=== PATIENT | male | born 1975 | race Caucasian/White ===

== ENCOUNTER 2022-06-08 16:35 | Inpatient (IN) | payer OTHER ==
[2022-06-08 18:00] VITALS: BMI 18.3
[2022-06-08] MEDS ORDERED: hydrOXYzine PAMOATE 25 MG CAPSULE (FP) PO PRN (20:19)
[2022-06-08] MEDS ORDERED: NICOTINE 10 MG CARTRIDGE (INHALER) IH PRN (20:19)
[2022-06-08] MEDS ORDERED: NICOTINE POLACRILEX 2 MG GUM BUC PRN (20:19)
[2022-06-08] MEDS ORDERED: MAGNESIUM HYDROX 2400MG/30ML ORAL SUSPENSION 30 ML CUP PO PRN (20:19)
[2022-06-08] MEDS ORDERED: LOPERAMIDE HCL 2 MG CAPSULE PO PRN (20:19)
[2022-06-08] MEDS ORDERED: ONDANSETRON *ODT* 4 MG TABLET SL PRN (20:19)
[2022-06-08] MEDS ORDERED: IBUPROFEN 400 MG TABLET (FP) PO PRN (20:19)
[2022-06-08] MEDS ORDERED: guaiFENesin 600 MG TABLET.ER (FP) PO PRN (20:19)
[2022-06-08] MEDS ORDERED: IBUPROFEN 600 MG TABLET (FP) PO PRN (20:19)
[2022-06-08] MEDS ORDERED: DICYCLOMINE HCL 10 MG CAPSULE PO PRN (20:19)
[2022-06-08] MEDS ORDERED: MAG HYDROX/AL HYDROX/SIMETH 30 ML UNIT-DOSE CUP PO PRN (20:19)
[2022-06-08] MEDS ORDERED: POLYETHYLENE GLYCOL (HEALTHYLAX) 3350 17 GM PACKET PO PRN (20:19)
[2022-06-08] MEDS ORDERED: NALOXONE HCL (KLOXXADO) 8 MG SPRAY NS PRN (20:19)
[2022-06-08] MEDS ORDERED: P-EPHED 60MG/TRIPROLIDI 2.5MG TABLET PO PRN (20:19)
[2022-06-08] MEDS ORDERED: BENZONATATE 200 MG CAPSULE PO PRN (20:19)
[2022-06-08] MEDS ORDERED: BISMUTH SUBSALICYLATE 524 MG/30 ML PO PRN (20:19)
[2022-06-08] MEDS ORDERED: NALOXONE HCL 0.4 MG/ML VIAL IM PRN (20:19)
[2022-06-08] MEDS ORDERED: BENZOCAINE/MENTHOL (CHLORASEPTIC ) LOZENGE MM PRN (20:19)
[2022-06-08] MEDS ORDERED: ACETAMINOPHEN 325 MG TABLET (FP) PO PRN (20:19)
[2022-06-08] MEDS ORDERED: MELATONIN 5 MG TABLETS PO SCH (22:00)
[2022-06-08] MEDS ORDERED: traZODone HCL 50 MG TABLET (FP) PO ONE (22:30)
[2022-06-08] MEDS: METHOCARBAMOL 500 MG TABLET PO PRN (22:49)
[2022-06-08] MEDS: THIAMINE HCL 100 MG TABLET (FP) PO SCH (23:07)
[2022-06-08] MEDS ORDERED: cloNIDine HCL 0.1 MG TABLET PO PRN (23:24)
[2022-06-08] MEDS ORDERED: methaDONE HCL 10 MG TABLET (FOR DETOX USE ONLY) PO ONE (23:30)
[2022-06-09] MEDS: OXcarbazepine 300 MG TABLET (UD) PO SCH ×2 (09:41→22:14)
[2022-06-09] MEDS: diazePAM 5 MG TABLET PO PRN ×3 (09:42→22:15)
[2022-06-09] MEDS ORDERED: PRENATAL VITAMINS W/ FOLIC ACID TABLET (FP) PO SCH (10:00)
[2022-06-09] MEDS ORDERED: METHIMAZOLE 5 MG TABLET PO SCH (10:00)
[2022-06-09] MEDS ORDERED: BENZTROPINE MESYLATE 1 MG TABLET PO PRN (10:24)
[2022-06-09 12:28] LABS: HEMATOCRIT 38.3 % (35.4-49); HEMOGLOBIN 13.6 GM/dL (11.7-16.9); MCH 33.2 pg (25.7-33.7); MCHC 35.5 g/dl (32.0-35.9); MEAN CELL VOLUME 93.6 fl (80-96); MEAN PLT VOLUME 9.2 fl (7.5-11.1); PLATELET COUNT 214 10^3/uL (134-434); RDW 13.7 % (11.9-15.9); WHITE BLOOD COUNT 6.3 K/mm3 (4.0-10.0)
[2022-06-09 12:29] LABS: ALBUMIN 3.5 g/dl (3.4-5.0); CALCIUM 8.7 mg/dL (8.5-10.1)
[2022-06-09 12:30] LABS: BLOOD UREA NITROGEN 9.3 mg/dL (7-18)
[2022-06-09 12:32] LABS: CREATININE 0.8 mg/dL (0.55-1.3)
[2022-06-09 12:34] LABS: BILIRUBIN,TOTAL 0.4 mg/dL (0.2-1)
[2022-06-09] MEDS: METHOCARBAMOL 500 MG TABLET PO PRN ×2 (17:14→22:15)
[2022-06-09] MEDS ORDERED: HALOPERIDOL 5 MG TABLET PO SCH (22:00)
[2022-06-09] MEDS ORDERED: traZODone HCL 50 MG TABLET (FP) PO SCH (22:00)
[2022-06-09] MEDS: THIAMINE HCL 100 MG TABLET (FP) PO SCH (22:13)
[2022-06-10] MEDS: diazePAM 5 MG TABLET PO PRN ×2 (02:35→05:57)
[2022-06-10] MEDS: METHOCARBAMOL 500 MG TABLET PO PRN (04:11)
[2022-06-10 06:37] VITALS: RESP 16
[2022-06-10 08:07] VITALS: BP 130/77; PULSE 43; TEMP 96.6
[2022-06-10] MEDS ORDERED: methaDONE HCL 10 MG TABLET (FOR DETOX USE ONLY) PO ONE (10:00)
[2022-06-12] MEDS ORDERED: methaDONE HCL 10 MG TABLET (FOR DETOX USE ONLY) PO ONE (10:00)
== END 2022-06-10 09:30 | disposition left against medical advice (07) | DRG 894 ==
LOC: YASAS 16:35 → Y6N 21:07
PROVIDERS: ADMIT Allergy & Immunology; ATTEND Surgery
PROC: HZ2ZZZZ Detoxification Services for Substance Abuse Treatment (ICD-10-PCS; principal; 2022-06-08)
DX: F11.23 Opioid dependence with withdrawal (principal); F13.20 Sedative, hypnotic or anxiolytic dependence, uncomplicated; F19.282 Other psychoactive substance dependence with psychoactive substance-induced sleep disorder; F17.210 Nicotine dependence, cigarettes, uncomplicated; F25.1 Schizoaffective disorder, depressive type; F31.9 Bipolar disorder, unspecified
CPT/HCPCS: 36415; 80053; 85027; 86780; C9803-CS; Q0162; U0003; U0005